=== PATIENT | female | born 1980 | race Asian ===

== ENCOUNTER 2018-10-20 13:37 | Outpatient (RCR) | payer OTHER, SELFPAY ==
[2017-08-05 10:35] VITALS: BMI 21.2
== END 2018-10-20 14:37 | disposition home or self-care (01) ==
LOC: LAB 13:37
PROVIDERS: Referring Provider Internal Medicine; Visit Provider Internal Medicine
DX: E03.9 Hypothyroidism, unspecified (principal)
CPT/HCPCS: 36415; 84443

== ENCOUNTER → 2018-11-01 08:56 | Outpatient (CLI) | payer OTHER, SELFPAY ==
[2017-08-05 10:35] VITALS: BMI 21.2
--- NOTE | 2018-11-01 08:58 | BI_ITS ---
MAMMOGRAPHY - BILATERAL DIAGNOSTIC REASON FOR EXAM: Female, 38 years old. Left shoulder pain and left breast pain for one week. PERTINENT HISTORY: Non-contributory. TECHNIQUE: Digital bilateral breast urmila (3D mammographic acquisition) in the CC and MLO projections. 2-D mediolateral oblique (MLO) and craniocaudad (CC) views of both breasts were obtained. CAD: Full Field Digital Mammography with Computer Added Detection was performed. COMPARISON: None. Baseline examination. FINDINGS: Breast Composition: The breasts are extremely dense, which lowers the sensitivity of mammography. There are no dominant masses or suspicious calcifications. No other significant abnormalities are identified. There has been no significant change since the prior study. BI/DIAG MAMM W/CAD, BILAT IMPRESSION: Negative diagnostic mammogram. Yearly followup mammogram recommended. (A) ASSESSMENT CATEGORY: BIRADS Category 1: Negative. A letter regarding these results will be sent to the patient by the facility within 30 days. Approximately 10% of breast cancers are not detected by mammography. A normal mammogram should not delay biopsy of a clinically suspicious abnormality. Electronically Signed: Eleazar Medina, at 10:24 EDT , Service support ,
== END ==
PROVIDERS: Referring Provider Internal Medicine; Visit Provider Internal Medicine
DX: N64.4 Mastodynia (principal)
CPT/HCPCS: 77062; 77066; G0279

== ENCOUNTER 2019-02-03 08:47 | Day surgery (SDC) | payer OTHER, SELFPAY ==
[2019-01-14 11:58] VITALS: BMI 21.2
--- NOTE | 2019-01-27 00:51 | PCM.HPOB.BLA ---
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 Is patient in pain?: No Allergies No Known Allergies Allergy (Verified 01/14/19 11:57) Medications Levothyroxine Sodium 1 tab PO DAILY 02/16/17 [History Confirmed 01/14/19] levonorgestrel 0.15 mg-ethinyl estradiol 0.03 mg tablet 1 tab PO QDAY #28 tab 12/30/18 [Rx Confirmed 01/14/19] Is last menstrual period known: No Post menopausal: No Patient : No : No [facility] Medical History Abnormal Pap smear of cervix (Acute) Thyroid disorder (Acute) Social History (Updated 01/17/19 @ 00:04 by Argenis Gannon MD) Smoking Status: Never smoker alcohol intake: never substance use type: does not use caffeine: No what type of physical activity do you participate in: none seatbelt use: always do you feel safe at home: Yes additional social history: Demetrio- Both are self employed HPI pelvic pains, declined sooner with [employer]: Details: TOMY BAZAN is a 38 year old who presents for left lower pelvic pain that has been present for two weeks. she co a history of ovarian cysts in the past. pain is better today. she denies any significant bleeding. Pregancy History 2 Elective abortions Hx Para 2 Spontaneous abortions Hx # Term Pregnancies Ectopic pregnancies Hx # Pregnancies Multiple births # of living children Past Pregnancies Del. Date Name GA/Weeks Outcome Route Bth Weight Gen Labor Lgth Anesthesia Del Locatn Provider FOB Unknown 2008 Aarav Unknown 2016 Niara ROS Const Constitutional: Denies fatigue, fever(s), headache(s), increased appetite, poor appetite, weight gain or weight loss Cardio Card: Denies chest pain Resp Resp: Denies cough or dyspnea : Reports as per HPI; denies difficulty urinating, painful urination, nipple discharge, urinary frequency, urinary incontinence, urinary hesitancy, urinary urgency, vaginal discharge, vaginal dryness, vaginal odor or vaginal itching Skin Skin/Breast: Denies change in hair, breast lump, breast pain, breast skin changes or nipple discharge Exam Const General: cooperative, healthy appearing, comfortable, no acute distress, well developed Nutritional Appearance: average body habitus Orientation: alert [facility] Head: normal to inspection, normocephalic Neck Neck: normal visual inspection, trachea midline Thyroid: thyroid normal Resp Effort & Inspection: normal respiratory effort GI Inspection: normal to inspection, non-distended Palpation: soft, no hepatosplenomegaly General: bladder normal to palpation External Female Exam: normal external appearance, normal appearance of the urethra Urethra: normal appearance of the urethra, normal palpation, no discharge Speculum Exam - Vagina: normal appearance of the vagina, normal vaginal discharge Speculum Exam - Cervix: normal appearance of the cervix, nontender Bimanual Exam- Vagina & Uterus: normal bimanual exam, uterine size normal, bladder normal to palpation, uterine shape normal, No cervical tenderness, uterine mobility normal, uterine consistency normal, normal cervical palpation, uterus non-tender Bimanual Exam- Adnexa, other: normal adnexae, adnexae mobile, no adnexal masses, pelvic support normal Pelvic Support: normal Skin General: no rashes or lesions noted Assessment & Plan Problems 1. Sterilization consult Z30.09 plan laparoscopic bilateral salpingectomy 2. Pelvic pain R10.2 Plan plan sterilization, us ordered Orders Orders: Pelvic (Non ) 01/14/19 R10.2 Transvaginal Non- 01/14/19 R10.2 Coding Level of Care Code Off vis,est,level 4 Diagnoses Sterilization consult Z30.09 Pelvic pain R10.2
[2019-02-03 09:11] VITALS: BP 134/86; PULSE 90; RESP 16; TEMP 36.9; O2SAT 99; BMI 19.4
[2019-02-03 09:13] LABS: Hematocrit 43.2 % (37-47); Hemoglobin 14.1 g/dL (12.0-15.0); Mean Corp Hgb Conc 32.6 g/dL (32-36); Mean Corpuscular Hgb 29.4 pg (27.0-32.0); Mean Corpuscular Volume 90.2 fL (81-99); Platelet Count 250 K/mm3 (150-450); Red Blood Count 4.79 M/mm3 (4.2-5.4)
[2019-02-03 09:16] LABS: Internal QC Validated? YES +Cl - CLEAR BKGD; Pregnancy, Urine Negative Negative
[2019-02-03] MEDS: Lactated Ringers 1,000 ML 100 ML IV ×2 (09:24→11:47)
[2019-02-03 09:38] LABS: Thyroid Stim Hormone (TSH) 4.71 uIU/mL (0.358-3.74)
--- NOTE | 2019-02-03 10:15 | FALS_PTH ---
PATIENT: ANATOLY BAZAN LOC: [facility] [place] U#:[id number] AGE/SX: 38/F ROOM: RE02/03/[address]: Dr. Argenis Gannon MD : 1980 BED: DIS: 02/03/2019 SPEC #: [id number] RECD: 02/03/19 14:46 STATUS: AMANDA RESadiq #: [id number] CHRISTY: 02/03/19 10:[address]: Argenis Gannon DEPT: SURGICAL PATHOLOGY RECD BY: Rey Bianchi ENTERED: 02/04/19 08:31 SP TYPE: FALL TUBES OTHR DR: No Primary Care Phys Tissues: Fallopian tube Procedures: Surgery Specimen Level II HEADER OPERATION: Laparoscopic salpingectomy PRE-OP DIAGNOSIS: Sterilization request TISSUE SUBMITTED: Bilateral fallopian tubes MICROSCOPIC DIAGNOSIS Bilateral fallopian tubes, salpingectomy: Bilateral fallopian tubes including fimbrial ends, no pathologic diagnosis. RACHEL:batool 02/07/19 MICROSCOPIC DESCRIPTION Slides are reviewed. GROSS DESCRIPTION Received in fixative is one container labeled with the patient's name and designated bilateral fallopian tubes. The specimen consists of bilateral fallopian tubes including fimbrial ends each measuring 6.5 cm in length and 0.5 cm in diameter. The fallopian tubes are not identified as right or left. Sections reveal unremarkable cut surfaces. Cattle Broker sections are submitted in two cassettes with each cassette containing one fallopian tube. / SJ:batool 02/04/19 TC:4 [facility]: [id number] x2
[2019-02-03] MEDS: Bupivacaine 0.25% 30 ML Vial (11:00)
--- NOTE | 2019-02-03 11:14 | PCM.OPRPT ---
Problem List (1) Sterilization consult Status: Acute Comment: plan laparoscopic bilateral salpingectomy Report of Operation Date of Procedure: 02/03/19 Pre-Operative Diagnosis: sterilization Post-Operative Diagnosis: same Surgery/Procedure Performed:: laparoscopic bilateral salpingectomy Description of Surgical Findings:: normal tubes ovaries double cut off saw operator: Omari Simpson Type of Anesthesia:: General Special Medications: none Specimen's removed: tubes Drains: none Estimated Blood Loss (mL): 10 Fluids Replaced: crystalloid Description of Procedure: Patient was taken in the operating room and was placed under general anesthesia was prepped and draped in normal sterile fashion in the dorsal lithotomy position. Bladder was drained of clear urine and SCDs were on preoperatively. Uterus was sounded and a uterine manipulator was placed after dilating. Attention was then paid to the abdominal portion of the procedure and the umbilicus was elevated with towel clamps and injected with Marcaine and after a 5 mm incision was made and the Veress needle was entered into the abdomen confirmed to be intra-abdominal with a low opening pressure of less than 5 mmHg. Abdomen was insufflated with CO2 gas and a 5 mm optical trocar was placed under direct visualization. A right and left lower quadrant 5 mm ports were placed under direct visualization. Uterus was well visualized and bilateral fallopian tubes identified and bilateral tubes were elevated and transecting across the mesosalpinx and the attachment to the uterine corpus bilaterally the tubes were removed without complication. Excellent hemostasis was noted. Fallopian tubes were removed through the lower port sites without complication. Liver and upper abdomen were visualized notably within normal limits and no other gross abnormalities were seen in the abdomen. All instruments removed from the abdomen after gas was desufflated. Port sites were closed with 3-0 Monocryl Steri's and op sites were applied. All instruments removed from the vagina and patient was awoken and taken recovery in stable condition. Grafts/Implants Used: none - Complications none - Admit VTE Documentation VTE Present on Admission: No VTE Mechan Device Prophylaxis: SCD's Multi Select Codes - Urinary/Genital Urinary/Genital CPT Codes: 25985 Oophorectomy - bilateral salpingectomy laparoscopy
--- NOTE | 2019-02-03 11:16 | PCM.DC.TUB ---
Discharge Diet: No Restrictions - Increase fluid intake for the next 48 hours. Discharge Activity: Return to Normal Activity, May Drive - when you are no longer taking narcotic pain medications., May Shower, May Take a Tub Bath - in 7 days Additional Activity Instructions:: Ambulate often the next week after surgery. Nothing in the vagina for 5 days. Call your doctor if your incision/area has: Continuous Slow Oozing, Sudden Increased Bleeding, Increased Pain/ Swelling, Increased Redness, Foul Smelling Discharge Call your doctor if you observe: Fever of 101 or Higher Allergies/Adverse Reactions: Allergies No Known Allergies Allergy (Verified 02/03/19 09:11) Medications to take at Discharge Levothyroxine Sodium 1 tab PO DAILY 02/16/17 levonorgestrel 0.15 mg-ethinyl estradiol 0.03 mg tablet 1 tab PO QDAY #28 tab 12/30/18 Naproxen [Naprosyn] 250 - 500 mg PO Q8H PRN PRN #30 tab 02/03/19 Oxycodone HCl/Acetaminophen [Percocet 5-325] 1 - 2 tablet PO Q4H PRN PRN 7 Days #15 tablet 02/03/19 The following prescriptions were given: Naproxen [Naprosyn] 250 - 500 mg PO Q8H PRN PRN #30 tab PRN Reason: MILD PAIN Transmission Status: Pending to [facility] Oxycodone HCl/Acetaminophen [Percocet 5-325] 1 - 2 tablet PO Q4H PRN PRN 7 Days #15 tablet PRN Reason: Pain Transmission Status: Sent to [facility] Primary Care Physician: Care Physician,No Primary [Primary Care Provider] - Test Results: Test results from this visit will be discussed in further detail at your follow-up appointment, if applicable. Please Follow Up With: Argenis Gannon MD - [phone]
[2019-02-03 11:35] VITALS: BP 127/85; BP 134/86; PULSE 75; RESP 16; TEMP 36.2; O2SAT 100
[2019-02-03 11:45] VITALS: BP 118/84; BP 134/86; PULSE 73; RESP 16; O2SAT 100
[2019-02-03 11:53] VITALS: BP 121/81; BP 134/86; PULSE 70; RESP 16; TEMP 36.6; O2SAT 100
[2019-02-03] MEDS: HYDROcodone Bitartrate/Apap 5/325 Tablet PO (12:17)
[2019-02-03 12:55] VITALS: BP 128/86; BP 134/86; PULSE 74; RESP 16; TEMP 37.1; O2SAT 100
== END 2019-02-03 13:32 | disposition home or self-care (01) ==
LOC: SDC 08:48 → AC 08:49
PROVIDERS: Anesthesiology; Referring Provider Obstetrics & Gynecology; Visit Provider Obstetrics & Gynecology
PROC: (CPT 58661; principal; 2019-02-03 10:00)
DX: Z30.2 Encounter for sterilization (principal); R10.2 Pelvic and perineal pain; E06.9 Thyroiditis, unspecified; Z79.899 Other long term (current) drug therapy
CPT/HCPCS: 58661; 81025; 84443; 85027; 86850; 86900; 86901; 88302; J7120; J2405

== ENCOUNTER → 2020-03-22 | Outpatient (CLI) | payer SELFPAY ==
[2020-03-22 09:18] VITALS: BMI 20.9
[2020-03-28 14:07] LABS: HPV APTIMA, High Risk Negative (Negative)
== END | disposition home or self-care (01) ==
LOC: LABSPEC 16:20
PROVIDERS: Visit Provider Obstetrics & Gynecology
DX: Z12.4 Encounter for screening for malignant neoplasm of cervix (principal); N94.9 Unspecified condition associated with female genital organs and menstrual cycle
CPT/HCPCS: 87070; 87205; 87624; 88175; G0145

== ENCOUNTER → 2022-06-10 | Outpatient (CLI) | payer SELFPAY ==
[2022-06-10 12:35] LABS: Estradiol 305.4 pg/mL; Follicle Stimulating Hormone 33.4 mIU/mL; Prolactin 14.3 ng/mL
== END | disposition home or self-care (01) ==
PROVIDERS: Referring Provider Obstetrics & Gynecology; Visit Provider Obstetrics & Gynecology
DX: N89.8 Other specified noninflammatory disorders of vagina (principal)
CPT/HCPCS: 36415; 82627; 82670; 83001; 83498; 84146; 84402; 87070; 87205; 82626

== ENCOUNTER → 2023-06-18 | Outpatient (CLI) | payer OTHER, SELFPAY ==
--- OUTSIDE RECORDS SUMMARY | 2023-06-18 14:44 | XMS RPT_ITS | CCD ---
Author Name Unknown Address [address] [place] [address] Organization [facility] Care Team Providers Care Guard Sergeant Name Role Phone Argenis Gannon MD Unavailable [phone] Pcp, No Unavailable Unavailable Jaimie Church MD Unavailable Traci Del Valle MD Primary Care Provider [phone] Pcp, No Unavailable Unavailable Jaimie Church MD Unavailable Traci Del Valle MD Primary Care Provider GANTA, TRACI Primary Care Unavailable GANTA, TRACI Referring Unavailable GANTA, TRACI Primary Care Unavailable GANTA, TRACI Referring Unavailable GANTA, TRACI Referring Unavailable GANTA, TRACI Primary Care Unavailable GANTA, TRACI Primary Care Unavailable GANTA, TRACI Attending Unavailable GANTA, TRACI Referring Unavailable GANTA, TRACI Primary Care Unavailable GANTA, TRACI Referring Unavailable GANTA, TRACI Primary Care Unavailable GANTA, TRACI Primary Care Unavailable GANTA, TRACI Referring Unavailable Pcp CPR AMBULANCE DRIVER, No Unavailable Unavailable Jaimie Church MD Unavailable Traci Del Valle MD Primary Care Provider [phone] Medications Completed/Discontinued Medications Medication Drug Class(es) Dates Sig (Normalized) Sig (Original) COMPOUNDED PRESCRIPTION (12 sources) Start: 05-15-2016 COMPOUNDED PRESCRIPTION Progesterone vaginal capsules. Insert 2 vaginally twice a day 120 capsule 1 05/15/2016 Active Problems Active Problems Problem Classification Problem Date Documented Da te Episodic/Chronic Spondylosis; intervertebral disc disorders; other back problems (1 source) Chronic low back pain; Translations: [Chronic bilateral low back pain without sciatica] Episodic Thyroid disorders (2 sources) Acquired hypothyroidism; Translations: [Hypothyroidism, unspecified] Onset: 10-23-2022 Chronic Unclassified (2 sources) 37 weeks gestation of ; Translations: [37 weeks gestation of ] Onset: 12-30-2016 02-06-2017 Unclassified (2 sources) care ; Translations: [Encounter for routine follow-up] Onset: 04-02-2017 04-03-2017 Past or Other Problems Problem Classification Problem Date Documented Da te Episodic/Chronic Normal and/or delivery (8 sources) Gestation period, 36 weeks; Translations: [Gestation period, 31 weeks] Onset: 12-30-2016 01-30-2017 Episodic Other complications of ; puerperium affecting management of mother (12 sources) Continuing after intrauterine of twin fetus; Translations: [, twin with loss of one fetus] Onset: 07-25-2016 09-10-2016 Episodic Other complications of (19 sources) High risk ; Translations: [Supervision of resulting from assisted reproductive technology, second trimester] Onset: 07-17-2016 12-30-2016 Episodic Other complications of (12 sources) Viral hepatitis complicating , childbirth and the puerperium; Translations: [Viral hepatitis complicating , unspecified trimester] Onset: 07-25-2016 08-08-2016 Episodic Other complications of (1 source) Supervision of resulting from assisted reproductive technology, second trimester; Translations: [ resulting from assisted reproductive technology] Onset: 07-17-2016 10-10-2016 Episodic Other gastrointestinal disorders (2 sources) H/O: liver disease; Translations: [Personal history of other diseases of the digestive system] Onset: 12-30-2016 12-30-2016 Episodic Other screening for suspected conditions (not mental disorders or infectious disease) (19 sources) Patient encounter status; Translations: [Encounter for screening mammogram for malignant neoplasm of breast] Onset: 07-17-2016 Episodic Residual codes; unclassified (12 sources) Genetic disorder carrier; Translations: [Genetic carrier of other disease] Onset: 07-17-2016 07-17-2016 Episodic Residual codes; unclassified (12 sources) Vegetarian; Translations: [Other specified health status] Onset: 07-17-2016 07-17-2016 Episodic Unclassified (4 sources) Family history of other congenital malformations, deformations and chromosomal abnormalities; Translations: [Family history of other congenital malformations, deformations and chromosomal abnormalities] Onset: 12-30-2016 12-30-2016 Episodic Results Test Name Value Interpretation Reference Range Facil ity Vital Signs Date Time Vital Sign Value Performing Clinician Stefan north 10-29-2021 14:33-0400 Body height 162.6 cm Traci Del Valle MD Work Phone: [facility] 10-29-2021 14:33-0400 Body temperature 97.39 [degF] Traci Del Valle MD Work Phone: [facility] 10-29-2021 14:33-0400 Body weight 53.07 kg Traci Del Valle MD Work Phone: [facility] 10-29-2021 14:33-0400 Diastolic blood pressure 72 mm[Hg] Traci Del Valle MD Work Phone: [facility] 10-29-2021 14:33-0400 Heart rate 82 /min Traci Del Valle MD Work Phone: [facility] 10-29-2021 14:33-0400 Respiratory rate 12 /min Traci Del Valle MD Work Phone: [facility] 10-29-2021 14:33-0400 SaO2% (BldA) [Mass fraction] 100 % Traci Del Valle MD Work Phone: [facility] 10-29-2021 14:33-0400 Systolic blood pressure 128 mm[Hg] Traci Del Valle MD Work Phone: [facility] 04-02-2017 15:23-0500 BMI (Body Mass Index) 22.02 kg/m2 Argenis Gannon MD [facility] 04-02-2017 15:23-0500 BP Diastolic 74 mm[Hg] Argenis Gannon MD [facility] 04-02-2017 15:23-0500 BP Systolic 119 mm[Hg] Argenis Gannon MD [facility] 04-02-2017 15:23-0500 Weight 54.61 kg Argenis Gannon MD [facility] 02-13-2017 09:59-0400 Body Temperature 98.4 [degF] Argenis Gannon MD [facility] 02-13-2017 09:59-0400 Pulse (Heart Rate) 98 /min Argenis Gannon MD [facility] 02-13-2017 09:59-0400 Respiratory Rate 16 /min Argenis Gannon MD [facility] 12-30-2016 15:08-0400 Height 157.48 cm Argenis Gannon MD [facility] Encounters Encounter Date Encounter Type Care Provider Facility Start: 10-30-2022 End: 10-30-2022 ambulatory TRACI DEL VALLE Facility:[facility] Start: 10-23-2022 End: 10-24-2022 ambulatory TRACI DEL VALLE Facility:[facility] Start: 07-21-2022 End: 07-21-2022 ambulatory TRACI DEL VALLE Facility:[facility] Start: 07-21-2022 End: 07-21-2022 Subsequent hospital visit by physician Screen Mammo [facility] Mammogram Start: 01-15-2022 Telephone encounter Traci ahn MD Work Phone: [facility] Procedures Date Procedure Procedure Detail Performing Clinician Start: 07-21-2022 Screening mammograph y bi 2-view breast inc cad Gwendolyn Wood MD Work Phone: Start: 01-14-2022 Us breast uni real t génesis with image limited Traci Del Valle MD Work Phone: Start: 01-14-2022 [facility] LT Brendan Del Valle MD Work Phone: Start: 11-06-2021 End: 11-06-2021 Mammography Traci Del Valle MD Work Phone: Start: 11-05-2020 Mammography Traci ahn MD Work Phone: Start: 10-27-2018 Adult depression scr eening assessment Traci Del Valle MD Work Phone: Start: 02-13-2017 End: 02-14-2017 Routine OB Visit (Global) Argenis muro MD Work Phone: Start: 02-06-2017 End: 02-06-2017 Routine OB Visit (Global) Argenis muro MD Work Phone: Start: 01-30-2017 End: 01-30-2017 Routine OB Visit (Global) Argenis muro MD Work Phone: Start: 01-30-2017 End: 02-16-2017 Streptococcus agalactiae DNA [Presence] in Unspecified specimen by DOROTHY with probe detection Argenis Gannon MD Work Phone: Start: 01-14-2017 End: 01-14-2017 Routine OB Visit (Global) Noreen laird GOLD BUYER Work Phone: Plan of Treatment Date Care Activity Detail Author Start: 12-08-2026 Urine microalbumin profile [facility] Start: 10-31-2023 Annual PCP Team Chronic Disease Visit Annual PCP Team Chronic Disease Visit [facility] Start: 07-21-2023 Mammography Mammogram Screening [facility] Start: 01-23-2023 Influenza vaccination [facility] Start: 11-06-2022 Mammography MAMMOGRAM [facility] Start: 10-29-2022 ANNUAL PCP TEAM CHRONIC DISEASE VISIT ANNUAL PCP TEAM CHRONIC DISEASE VISIT [facility] Start: 01-23-2022 Influenza vaccination [facility] Start: 11-05-2021 Mammography MAMMOGRAM [facility] Start: 07-25-2020 HPV TESTING HPV TESTING [facility] Start: 07-25-2020 PAP TESTING PAP TESTING [facility] Start: 10-28-2019 Adult depression screening assessment DEPRESSION SCREENING [facility] Start: 01-30-2017 End: 02-16-2017 Streptococcus agalactiae DNA [Presence] in Unspecified specimen by DOROTHY with probe detection *GBSD - Group B Strep, DNA by PCR [facility] Start: 1985 COVID-19 VACCINE (#1) COVID-19 VACCINE (#1) [facility] Start: 04-04-1981 COVID-19 VACCINE (#1) COVID-19 VACCINE (#1) [facility] Start: 1980 HEPATITIS B (1 of 3 - 3-dose series) HEPATITIS B (1 of 3 - 3-dose series) [facility] Start: 1980 Hepatitis B Vaccine (1 of 3 - 3-dose series) Hepatitis B Vaccine (1 of 3 - 3-dose series) [facility] End: 12-06-2022 Diagnostic mammography computer-aided detcj uni [facility] Radiology Routine Abnormal mammogram 1 Occurrences starting 11/06/2021 until 12/06/2022 [facility] Work Phone: Immunizations Immunization Date Immunization Notes Care Provider Fa rasheed 02-17-2017 influenza, seasonal, injectable, preservative free Traci Del Valle MD Work Phone: [facility] Work Phone: 02-17-2017 influenza virus vaccine, unspecified formulation Screen Wstr [facility] 12-08-2016 tetanus toxoid, redu betsy diphtheria toxoid, and acellular pertussis vaccine, adsorbed Traci Del Valle MD Work Phone: [facility] Work Phone: 06-21-2016 influenza, high dose seasonal, preservative-free Traci Del Valle MD Work Phone: [facility] Work Phone: 06-21-2016 influenza, injectabl e, quadrivalent, contains preservative Traci Del Valle MD Work Phone: [facility] Social History Date Type Detail Facility Start: 07-26-2015 Tobacco smoking stat us WAIS Never smoked tobacco [facility] Work Phone: Start: 07-26-2015 Tobacco use and exposure Smokeless tobacco non-user [facility] Work Phone: Start: 10-29-2021 Alcohol intake Current non-dr dynamicist of alcohol (finding) [facility] Start: 1980 Sex Assigned At Not on file [facility] Start: 10-19-2021 End: 12-04-2021 Exposure to SARS-CoV-2 (event) Not sure [facility] Work Phone: Start: 10-29-2021 End: 06-10-2022 History of Social function [facility] Start: 10-29-2021 End: 06-10-2022 Tobacco use panel [facility] Adult Depression Screening Assessment 2 [facility] Clinical Notes 07-17-2016 to 10-30-2022 Socorro Santos Mammo Tech - 07/21/2022 9:10 AM ESTTelephone Encounter - Rochelle Cardona Ga - 01/15/2022 12:03 PM EDTTelephone Encounter - Rochelle Cardona Ga - 01/15/2022 12:02 PM EDT Note Date & Type Note Facility 10-30-2022 Note HNO ID: [id number] Author: Traci Del Valle MD Service: ? Author Type: Physician Type: Progress Notes Filed: 10/30/2022 2:02 PM Note Text: Reason for Visit Patient presents with: Physical Anatoly Ross is a 42 year old female who presents here today for CPE. Health Maintenance HEPATITIS B(1 of 3 - 3-dose series) COVID-19 VACCINE(1) PAP TESTING HPV TESTING DEPRESSION ASSESSMENT HPI This was a challenging visit for her as she lost her brother to suicide. The patient is inconsolable a lot of the days and spontaneously stops crying. Unable to focus on homework, on her kids, her . She was inconsolable today in the office. This is coming up in 1 year and she is willing to start medications Hypothyroidism. She is doing well on her current dose of Synthroid. Denies fatigue, cold intolerance and swelling in feet. TSH recently checked and normal. Depression Screening 04/15/2017 10/27/2018 10/30/2022 PHQ-2 Score 0 2 0 Depression screening tool completed and reviewed. Based on score and interview, patient is at risk for depression. Screening tool discussed with patient, and I recommended medication at this time No problem-specific Assessment AND Plan notes found for this encounter. 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 Pertinent Lab/Diagnostic Studies are reviewed and discussed today Current Outpatient Medications: levothyroxine (LEVOXYL) 25 mcg tablet Mqdzhsay-Lt-Kbu-Fe-FA tab COMPOUNDED PRESCRIPTION Review of Systems CONSTITUTIONAL: No fevers, chills, nightsweats, unintended weight loss HEENT: Denies frequent or severe heaches, nasal congestion/sinus symptoms, problematic allergy problems. EYES: No diplopia or blurry vision. CARDIOVASCULAR: No chest pain, dyspnea, palpitations, orthopnea, PND, ankle edema. PULM: No dyspnea, unexplained cough. GI: No dysphagia/odynophagia, problematic reflux, constipation, diarrhea, changes in stool habits, hematochezia, melena. : No new urinary complaints, including dysuria, gross hematuria or pyuria. NEURO: No new balance problems, peripheral weakness/paresthesias or numbness of concern. MUSC-SKEL: No new joint pain, swelling, or erythema. PSY: No concerns regarding depression, anxiety or panic. INTEGUMENTARY: No new skin changes (rash, new or changing mole, new growth) Physical Exam BP 118/70 Pulse 76 Resp 16 Ht 162.6 cm (5' 4.02 ) Wt 52.6 kg (116 lb) LMP 11/24/2017 SpO2 98% BMI 19.90 kg/m? General appearance: Well appearing, alert, in no acute distress, well-hydrated, well nourished. Skin: Skin color, texture, turgor normal, no suspicious rashes or lesions Head: Normocephalic, no masses, lesions, tenderness or abnormalities Eyes: Anicteric sclera. Pupils are equally round and reactive to light. Extraocular movements are intact. Ears: External ears normal, canals clear Nose/Sinuses: Nares normal, septum midline, mucosa normal, no drainage or sinus tenderness Oropharynx: Lips, mucosa, and tongue normal, teeth and gums normal, oropharynx normal Neck: Supple, no adenopathy; thyroid symmetric, normal size, no bruits Back: Normal exam Lungs: Lungs clear to auscultation. No wheezing, rhonchi, rales Heart: RRR without murmur, gallop, or rubs. No ectopy Abdomen: Normal abdominal exam, Abdomen soft, non-tender. Bowel sounds normal. No masses, organomegaly Extremities: No deformities, edema, skin discoloration, clubbing or cyanosis. Good capillary refill. Musculoskeletal: No joint swelling, deformity, or tenderness Peripheral pulses: Normal Neuro: Gait normal. Reflexes normal and symmetric. Sensation grossly intact. ASSESSMENT/PLAN: 1. Annual physical exam - ICD9: V70.0, ICD10: Z00.00 (primary diagnosis) - Counseled on healthy diet and regular exercise - Calcium intake with supplements or by diet of 1000 mg/day for under 50, 1765-4814 mg/day for 50+ 2. Grief - ICD9: 309.0, ICD10: F43.21 Trial of SSRI and for insomnia Valium 3. Moderate episode of recurrent major depressive disorder (HCC) - ICD9: 296.32, ICD10: F33.1 - DEPRESSION SCREENING/ASSESSMENT - ESCITALOPRAM 5 MG TABLET 4. Acquired hypothyroidism - ICD9: 244.9, ICD10: E03.9 - LEVOTHYROXINE 25 MCG TABLET Traci Del Valle MD [facility] 10-14-2022 Note Patient Outreach (IN TMMN) ANATOLY ROSS ([id number]) 1980 F Date Time Provider Department 10/14/22 TRACI DEL VALLE During your visit today, we recorded the following information about you: Allergies As of Date: 10/14/2022 (No Known Allergies) Date Reviewed: 10/29/2021 Reviewed by: Elaine Gonzalez LPN - Fully Assessed Visit Diagnosis:Acquired hypothyroidism [E03.9] Order(s):TSH BLD [SQTSH] Order #: [id number] FUTURE Prescriptions as of 10/17/2022 - levothyroxine (LEVOXYL) 25 mcg tablet Take on empty stomach 6 days week. - Vnwvinye-Ve-Ojk-Fe-FA ( VITAMIN) tab Take 1 tablet by mouth. - COMPOUNDED PRESCRIPTION Progesterone vaginal capsules. 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 Author Type: Surgical Technologist Type: Progress Notes Filed: 07/21/2022 9:02 AM Note Text: Radiology Service Progress Note PATIENT NAME: Anatoly Ross DATE OF SERVICE: July 21, 2022 TIME: 8:47 AM PATIENT IDENTITY VERIFICATION COMPLETED USING TWO (2) IDENTIFIERS: Name and Date of confirmed by patient verbally. FALL SCREENING: Has the patient had 2 falls in the last year or 1 fall with injury or currently using an Ambulatory Assistive Device (Walker, Cane, Wheelchair, Crutches, etc.)? No PATIENT GENDER DATA: Female. status: : No status: NO. PATIENT RELEVANT IMPLANT DATA REVIEWED: Not Applicable RADIOLOGY DEPARTMENT: Mammography PERIPHERAL IV DATA: Not applicable SIGNED BY: Brandan Benavides July 21, 2022 8:47 AM [facility] 07-21-2022 History of Presen t illness Narrative Radiology Service Progress Note PATIENT NAME: Anatoly Ross DATE OF SERVICE: July 21, 2022 TIME: 8:47 AM PATIENT IDENTITY VERIFICATION COMPLETED USING TWO (2) IDENTIFIERS: Name and Date of confirmed by patient verbally. FALL SCREENING: Has the patient had 2 falls in the last year or 1 fall with injury or currently using an Ambulatory Assistive Device (Walker, Cane, Wheelchair, Crutches, etc.)? No PATIENT GENDER DATA: Female. status: : No status: NO. PATIENT RELEVANT IMPLANT DATA REVIEWED: Not Applicable RADIOLOGY DEPARTMENT: Mammography PERIPHERAL IV DATA: Not applicable SIGNED BY: Brandan Benavides Mary Carmen July 21, 2022 8:47 AM documented in this encounter [facility] 01-15-2022 Miscellaneous Notes Pt notified of results via [employer]. Rochelle Cardona Ma ----- Message from Traci Del Valle MD sent at 01/15/2022 11:39 AM EDT ----- Test results are normal documented in this encounter [facility] 01-14-2022 Note HNO ID: [id number] Author: Marium Lowe RDMS Service: ? Author Type: Industrial Gas Servicer Supervisor Type: Progress Notes Filed: 01/14/2022 10:30 AM Note Text: Radiology Service Progress Note PATIENT NAME: Anatoly Ross DATE OF SERVICE: January 14, 2022 TIME: 10:30 AM PATIENT IDENTITY VERIFICATION COMPLETED USING TWO (2) IDENTIFIERS: Name and Date of confirmed by patient verbally. FALL SCREENING: Has the patient had 2 falls in the last year or 1 fall with injury or currently using an Ambulatory Assistive Device (Walker, Cane, Wheelchair, Crutches, etc.)? No PATIENT GENDER DATA: Female. status: : No status: NO. PATIENT RELEVANT IMPLANT DATA REVIEWED: Not Applicable RADIOLOGY DEPARTMENT: Ultrasound PERIPHERAL IV DATA: Not applicable SIGNED BY: Marium Lowe RDMS RVT January 14, 2022 10:30 AM [facility] 01-14-2022 Note HNO ID: [id number] Author: RT Kristian(Delaney) Service: ? Author Type: Technologist Type: Progress Notes Filed: 01/14/2022 9:20 AM Note Text: Radiology Service Progress Note PATIENT NAME: Anatoly Ross DATE OF SERVICE: January 14, 2022 TIME: 9:20 AM PATIENT IDENTITY VERIFICATION COMPLETED USING TWO (2) IDENTIFIERS: Name and Date of confirmed by patient verbally. FALL SCREENING: Has the patient had 2 falls in the last year or 1 fall with injury or currently using an Ambulatory Assistive Device (Walker, Cane, Wheelchair, Crutches, etc.)? No PATIENT GENDER DATA: Female. status: : No status: NO. PATIENT RELEVANT IMPLANT DATA REVIEWED: Not Applicable RADIOLOGY DEPARTMENT: Mammography PERIPHERAL IV DATA: Not applicable SIGNED BY: RT Kristian(R) January 14, 2022 9:20 AM [facility] 01-14-2022 Miscellaneous Notes January 14, 2022 PID: [id number] [facility] [address] [place] [address] Dear Ms. Ross, Your recent breast imaging examination performed on 01/14/2022 showed an area that we believe is probably benign (not cancer). A six month follow-up is recommended to ensure your breast health. Please call [phone] to make an appointment for these tests if you have not already done so. You must have an order/prescription from your physician when calling to schedule your appointment. If your order/prescription is not electronic, you must bring the hard copy with you on the day of your exam to avoid delays. Your mammogram demonstrates that you have dense breast tissue, which could hide abnormalities. Dense breast tissue, in and of itself, is a relatively common condition. Therefore, this information is not provided to cause undue concern; rather, it is to raise your awareness and promote discussion with your health care provider regarding the presence of dense breast tissue in addition to other risk factors. Early detection of cancer is very important. We also understand recommendations regarding breast cancer screening are controversial. Please discuss with your primary care provider which strategy is best for you and whether a mammogram is right for you. Your imaging studies and report will be kept on file at [facility] as part of your permanent medical record and are available for your continuing care. Thank you for allowing us to help in meeting your health care needs. Sincerely, Dr. Vasquez Interpreting Radiologist [facility] (# mo Follow-up) January 14, 2022 PID: [id number] Anatoly Ross [address] [place] [address] Dear Ms. Ross, Your recent breast imaging examination performed on 01/14/2022 showed an area that we believe is probably benign (not cancer). A six month follow-up is recommended to ensure your breast health. Please call [phone] to make an appointment for these tests if you have not already done so. You must have an order/prescription from your physician when calling to schedule your appointment. If your order/prescription is not electronic, you must bring the hard copy with you on the day of your exam to avoid delays. Your mammogram demonstrates that you have dense breast tissue, which could hide abnormalities. Dense breast tissue, in and of itself, is a relatively common condition. Therefore, this information is not provided to cause undue concern; rather, it is to raise your awareness and promote discussion with your health care provider regarding the presence of dense breast tissue in addition to other risk factors. Early detection of cancer is very important. We also understand recommendations regarding breast cancer screening are controversial. Please discuss with your primary care provider which strategy is best for you and whether a mammogram is right for you. Your imaging studies and report will be kept on file at [facility] as part of your permanent medical record and are available for your continuing care. Thank you for allowing us to help in meeting your health care needs. Sincerely, Dr. Vasquez Interpreting Radiologist [facility] (# mo Follow-up) documented in this encounter [facility] 01-14-2022 History of Presen t illness Narrative Radiology Service Progress Note PATIENT NAME: Anatoly Ross DATE OF SERVICE: January 14, 2022 TIME: 10:30 AM PATIENT IDENTITY VERIFICATION COMPLETED USING TWO (2) IDENTIFIERS: Name and Date of confirmed by patient verbally. FALL SCREENING: Has the patient had 2 falls in the last year or 1 fall with injury or currently using an Ambulatory Assistive Device (Walker, Cane, Wheelchair, Crutches, etc.)? No PATIENT GENDER DATA: Female. status: : No status: NO. PATIENT RELEVANT IMPLANT DATA REVIEWED: Not Applicable RADIOLOGY DEPARTMENT: Ultrasound PERIPHERAL IV DATA: Not applicable SIGNED BY: Marium Lowe RDMS RVT January 14, 2022 10:30 AM documented in this encounter [facility] 01-14-2022 History of Presen t illness Narrative Radiology Service Progress Note PATIENT NAME: Anatoly Ross DATE OF SERVICE: January 14, 2022 TIME: 9:20 AM PATIENT IDENTITY VERIFICATION COMPLETED USING TWO (2) IDENTIFIERS: Name and Date of confirmed by patient verbally. FALL SCREENING: Has the patient had 2 falls in the last year or 1 fall with injury or currently using an Ambulatory Assistive Device (Walker, Cane, Wheelchair, Crutches, etc.)? No PATIENT GENDER DATA: Female. status: : No status: NO. PATIENT RELEVANT IMPLANT DATA REVIEWED: Not Applicable RADIOLOGY DEPARTMENT: Mammography PERIPHERAL IV DATA: Not applicable SIGNED BY: RT Kristian(R) January 14, 2022 9:20 AM documented in this encounter [facility] 11-06-2021 Miscellaneous Notes Patient's notified and number to schedule was given. Please let patient know that we need additional views of her mammogram There is an area there that they want to make sure there is nothing else that is a problem. Please assist patient with scheduling documented in this encounter [facility] 11-06-2021 Note HNO ID: [id number] Author: Ana Orta Mammo Tech Service: ? Author Type: Surgical Technologist Type: Progress Notes Filed: 11/06/2021 11:44 AM Note Text: Radiology Service Progress Note PATIENT NAME: Anatoly Ross DATE OF SERVICE: November 06, 2021 TIME: 11:44 AM PATIENT IDENTITY VERIFICATION COMPLETED USING TWO (2) IDENTIFIERS: Name and Date of confirmed by patient verbally. FALL SCREENING: Has the patient had 2 falls in the last year or 1 fall with injury or currently using an Ambulatory Assistive Device (Walker, Cane, Wheelchair, Crutches, etc.)? No PATIENT GENDER DATA: Female. status: : No status: NO. PATIENT RELEVANT IMPLANT DATA REVIEWED: Not Applicable RADIOLOGY DEPARTMENT: Mammography PERIPHERAL IV DATA: Not applicable SIGNED BY: Ana Orta [employer] November 06, 2021 11:44 AM [facility] 11-06-2021 Miscellaneous Notes November 06, 2021 PID: [id number] Anatoly Cody [address] [place] [address] Dear Ms. Ross, Your recent breast imaging exam on 11/06/2021 showed a possible finding that requires additional imaging studies for a complete evaluation. Most such findings are probably benign (not cancer). Your mammogram demonstrates that you have dense breast tissue, which could hide abnormalities. Dense breast tissue, in and of itself, is a relatively common condition. Therefore, this information is not provided to cause undue concern; rather, it is to raise your awareness and promote discussion with your health care provider regarding the presence of dense breast tissue in addition to other risk factors. If you have a healthcare provider who ordered/prescribed your screening mammogram: Please call [phone] or EXT: [phone] to schedule an appointment for your additional imaging (if you have not already done so). If you DO NOT have a healthcare provider (ie you did not have an order/prescription for your screening mammogram): Please call to schedule an appointment for your additional imaging (if you have not already done so). You must have an order/prescription from your physician when calling to schedule your appointment. If your order/prescription is not electronic, you must bring the hard copy with you on the day of your exam to avoid delays. Your imaging studies and reports are kept on file at [facility] as part of your permanent medical record, and are available for your continuing care. Thank you for allowing us to help in meeting your health care needs. Sincerely, Dr. Todd Interpreting Radiologist [facility] (Additional imaging) documented in this encounter [facility] 11-06-2021 History of Presen t illness Narrative Radiology Service Progress Note PATIENT NAME: Anatoly Ross DATE OF SERVICE: November 06, 2021 TIME: 11:44 AM PATIENT IDENTITY VERIFICATION COMPLETED USING TWO (2) IDENTIFIERS: Name and Date of confirmed by patient verbally. FALL SCREENING: Has the patient had 2 falls in the last year or 1 fall with injury or currently using an Ambulatory Assistive Device (Walker, Cane, Wheelchair, Crutches, etc.)? No PATIENT GENDER DATA: Female. status: : No status: NO. PATIENT RELEVANT IMPLANT DATA REVIEWED: Not Applicable RADIOLOGY DEPARTMENT: Mammography PERIPHERAL IV DATA: Not applicable SIGNED BY: Brandan Walker November 06, 2021 11:44 AM documented in this encounter [facility] 10-30-2021 Miscellaneous Notes Patient notified and scheduled with PT. ----- Message from Traci Del Valle MD sent at 10/29/2021 5:58 PM EDT ----- Back xr looks normal seems to be more of a postural related back pain that will get better with Physical Therapy documented in this encounter [facility] 10-29-2021 History of Presen t illness Narrative Reason for Visit Patient presents with: Established Patient: phjysical Anatoly Ross is a 41 year old female who presents here today for CPE. Health Maintenance COVID-19 VACCINE(1) DEPRESSION SCREENING PAP TESTING HPV TESTING MAMMOGRAM HPI Diet- vegetarian but eats eggs, plant based diet. Sleep- insomnia at night time occasionally Stress- not much stress Exercise- she is 2 times a week, walking, and doing instagram exercises. Hypothyroidism. She is doing well on her current dose of Synthroid. Denies fatigue, cold intolerance and swelling in feet. TSH recently checked and normal. No problem-specific Assessment & Plan notes found for this encounter. 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 Pertinent Lab/Diagnostic Studies are reviewed and discussed today Current Outpatient Medications: levothyroxine (LEVOXYL) 25 mcg tablet Xzcwbvxk-Dc-Zol-Fe-FA ( VITAMIN) tab COMPOUNDED PRESCRIPTION Review of Systems CONSTITUTIONAL: No fevers, chills, nightsweats, unintended weight loss HEENT: Denies frequent or severe heaches, nasal congestion/sinus symptoms, problematic allergy problems. EYES: No diplopia or blurry vision. CARDIOVASCULAR: No chest pain, dyspnea, palpitations, orthopnea, PND, ankle edema. PULM: No dyspnea, unexplained cough. GI: No dysphagia/odynophagia, problematic reflux, constipation, diarrhea, changes in stool habits, hematochezia, melena. : No new urinary complaints, including dysuria, gross hematuria or pyuria. NEURO: No new balance problems, peripheral weakness/paresthesias or numbness of concern. MUSC-SKEL: No new joint pain, swelling, or erythema. PSY: No concerns regarding depression, anxiety or panic. INTEGUMENTARY: No new skin changes (rash, new or changing mole, new growth) Physical Exam BP 128/72 (BP Site: Left Arm, BP Position: Sitting, BP Cuff Size: Regular Adult) Pulse 82 Temp 36.3 C (97.4 F) Resp 12 Ht 162.6 cm (5' 4 ) Wt 53.1 kg (117 lb) LMP 11/24/2017 SpO2 100% No BMI 20.08 kg/m General appearance: Well appearing, alert, in no acute distress, well-hydrated, well nourished. Skin: Skin color, texture, turgor normal, no suspicious rashes or lesions Head: Normocephalic, no masses, lesions, tenderness or abnormalities Eyes: Anicteric sclera. Pupils are equally round and reactive to light. Extraocular movements are intact. Ears: External ears normal, canals clear Nose/Sinuses: Nares normal, septum midline, mucosa normal, no drainage or sinus tenderness Oropharynx: Lips, mucosa, and tongue normal, teeth and gums normal, oropharynx normal Neck: Supple, no adenopathy; thyroid symmetric, normal size, no bruits Back: Normal exam Lungs: Lungs clear to auscultation. No wheezing, rhonchi, rales Heart: RRR without murmur, gallop, or rubs. No ectopy Abdomen: Normal abdominal exam, Abdomen soft, non-tender. Bowel sounds normal. No masses, organomegaly Extremities: No deformities, edema, skin discoloration, clubbing or cyanosis. Good capillary refill. Musculoskeletal: No joint swelling, deformity, or tenderness Peripheral pulses: Normal Neuro: Gait normal. Reflexes normal and symmetric. Sensation grossly intact. ASSESSMENT/PLAN: 1. Annual physical exam - ICD9: V70.0, ICD10: Z00.00 (primary diagnosis) - Counseled on healthy diet and regular exercise - Calcium intake with supplements or by diet of 1000 mg/day for under 50, 4641-5903 mg/day for 50+ - CONSULT TO PHYSICAL THERAPY 2. Acquired hypothyroidism - ICD9: 244.9, ICD10: E03.9 - Instructed patient on importance of taking on an empty stomach either first thing in the morning or at bedtime. Stable - Continue current medications - LEVOTHYROXINE 25 MCG TABLET 3. Chronic bilateral low back pain without sciatica - ICD9: 724.2, 338.29, ICD10: M54.50, G89.29 - XR LUMBAR GENERAL 3V AP/LAT/L5-S1 4. Encounter for screening mammogram for breast cancer - ICD9: V76.12, ICD10: Z12.31 - Encouraged monthly BSE - Follow up for annual exam in one year. - [facility] SCREENING Traci Del Valle MD documented in this encounter [facility] documented as of this encounter (statuses as of 10/29/2021) [facility]02-[facility]-2017 History of Past illness Narrative* Problem Noted Date Resolved Date Twin in first trimester 07/17/2016 07/25/2016 Overview: 07/17/2016 Patient is 35 years old. Advanced Maternal age discussed. Pt refused handouts on Genetic Amniocentesis and [facility]. [facility] handout on Quad Marker Screen and Early Screening In given and discussed. Level II Ultrasound and Dr. Vicente's services discussed. TKRN documented as of this encounter (statuses as of 10/30/2021) [facility] History of Past illness Narrative* Problem Noted Date Resolved Date Twin in first trimester 07/17/2016 07/25/2016 Overview: 07/17/2016 Patient is 35 years old. Advanced Maternal age discussed. Pt refused handouts on Genetic Amniocentesis and [facility]. [facility] handout on Quad Marker Screen and Early Screening In given and discussed. Level II Ultrasound and Dr. Vicente's services discussed. TKRN documented as of this encounter (statuses as of 11/06/2021) [facility] History of Past illness Narrative* Problem Noted Date Resolved Date Twin in first trimester 07/17/2016 07/25/2016 Overview: 07/17/2016 Patient is 35 years old. Advanced Maternal age discussed. Pt refused handouts on Genetic Amniocentesis and [facility]. [facility] handout on Quad Marker Screen and Early Screening In given and discussed. Level II Ultrasound and Dr. Vicente's services discussed. TKRN documented as of this encounter (statuses as of 11/07/2021) [facility] History of Past illness Narrative* Problem Noted Date Resolved Date Twin in first trimester 07/17/2016 07/25/2016 Overview: 07/17/2016 Patient is 35 years old. Advanced Maternal age discussed. Pt refused handouts on Genetic Amniocentesis and [facility]. [facility] handout on Quad Marker Screen and Early Screening In given and discussed. Level II Ultrasound and Dr. Vicente's services discussed. TKRN documented as of this encounter (statuses as of 11/07/2021) [facility] History of Past illness Narrative* Problem Noted Date Resolved Date Twin in first trimester 07/17/2016 07/25/2016 Overview: 07/17/2016 Patient is 35 years old. Advanced Maternal age discussed. Pt refused handouts on Genetic Amniocentesis and [facility]. [facility] handout on Quad Marker Screen and Early Screening In given and discussed. Level II Ultrasound and Dr. Vicente's services discussed. TKRN documented as of this encounter (statuses as of 11/08/2021) [facility] History of Past illness Narrative* Problem Noted Date Resolved Date Twin in first trimester 07/17/2016 07/25/2016 Overview: 07/17/2016 Patient is 35 years old. Advanced Maternal age discussed. Pt refused handouts on Genetic Amniocentesis and [facility]. [facility] handout on Quad Marker Screen and Early Screening In given and discussed. Level II Ultrasound and Dr. Vicente's services discussed. TKRN documented as of this encounter (statuses as of 12/11/2021) [facility] History of Past illness Narrative* Problem Noted Date Resolved Date Twin in first trimester 07/17/2016 07/25/2016 Overview: 07/17/2016 Patient is 35 years old. Advanced Maternal age discussed. Pt refused handouts on Genetic Amniocentesis and [facility]. [facility] handout on Quad Marker Screen and Early Screening In given and discussed. Level II Ultrasound and Dr. Vicente's services discussed. TKRN documented as of this encounter (statuses as of 01/15/2022) [facility] History of Past illness Narrative* Problem Noted Date Resolved Date Twin in first trimester 07/17/2016 07/25/2016 Overview: 07/17/2016 Patient is 35 years old. Advanced Maternal age discussed. Pt refused handouts on Genetic Amniocentesis and [facility]. [facility] handout on Quad Marker Screen and Early Screening In given and discussed. Level II Ultrasound and Dr. Vicente's services discussed. TKRN documented as of this encounter (statuses as of 01/15/2022) [facility] History of Past illness Narrative* Problem Noted Date Resolved Date Twin in first trimester 07/17/2016 07/25/2016 Overview: 07/17/2016 Patient is 35 years old. Advanced Maternal age discussed. Pt refused handouts on Genetic Amniocentesis and [facility]. [facility] handout on Quad Marker Screen and Early Screening In given and discussed. Level II Ultrasound and Dr. Vicente's services discussed. TKRN documented as of this encounter (statuses as of 01/15/2022) [facility] History of Past illness Narrative* Problem Noted Date Resolved Date Twin in first trimester 07/17/2016 07/25/2016 Overview: 07/17/2016 Patient is 35 years old. Advanced Maternal age discussed. Pt refused handouts on Genetic Amniocentesis and [facility]. [facility] handout on Quad Marker Screen and Early Screening In given and discussed. Level II Ultrasound and Dr. Vicente's services discussed. TKRN documented as of this encounter (statuses as of 01/16/2022) [facility] History of Past illness Narrative* Problem Noted Date Diagnosed Date Resolved Date Twin in first trimester 07/17/2016 07/25/2016 Overview: 07/17/2016 Patient is 35 years old. Advanced Maternal age discussed. Pt refused handouts on Genetic Amniocentesis and [facility]. [facility] handout on Quad Marker Screen and Early Screening In given and discussed. Level II Ultrasound and Dr. Vicente's services discussed. TKRN documented as of this encounter (statuses as of 03/30/2023) [facility] note* Diagnosis Annual physical exam- Primary Routine general medical examination at a health care facility Acquired hypothyroidism Unspecified hypothyroidism Chronic bilateral low back pain without sciatica Encounter for screening mammogram for breast cancer documented in this encounter [facility] note* Diagnosis Abnormal mammogram- Primary Abnormal mammogram, unspecified [facility] Diagnosis Encounter for screening mammogram for breast cancer documented in this encounter [facility] note* Diagnosis Abnormal mammogram Abnormal mammogram, unspecified documented in this encounter [facility] note* Diagnosis Abnormal mammogram Abnormal mammogram, unspecified documented in this encounter [facility] for referral (narrative)* Diagnostic Procedure Only (Routine) - Pending Review Specialty Diagnoses / Procedures Referred By Tatyana parham Referred To Contact [facility] Diagnoses Encounter for screening mammogram for breast cancer Procedures ALBINO SCREENING SCREENING MAMMOGRAPHY BI 2-VIEW BREAST INC CAD Traci Del Valle MD [address] [place] [address] [facility] [address] [place] [address] Referral ID Status Reason Start Date Expiration Date Visits Requested Visits Authorized [id number] Pending Review Auto-Generat ed Referral 10/29/2021 11/28/2022 1 1 * Physical Therapy (Routine) - Pending Review Specialty Diagnoses / Procedures Referred By Tatyana parham Referred To Contact [facility] Diagnoses Annual physical exam Procedures CONSULT TO PHYSICAL THERAPY PHYSICAL THERAPY EVALUATION HIGH COMPLEX 45 MINS Traci Del Valle MD [address] [place] [address] [facility] [place] [address] [place] [id number] Referral ID Status Reason Start Date Expiration Date Visits Requested Visits Authorized [id number] Pending Review Auto-Generat ed Referral 10/29/2021 10/29/2022 1 1 * Diagnostic Procedure Only (Routine) - Pending Review Specialty Diagnoses / Procedures Referred By Tatyana parham Referred To Contact [facility] IMAGING Diagnoses Chronic bilateral low back pain without sciatica Procedures XR LUMBAR GENERAL 3V AP/LAT/L5-S1 RADEX SPINE LUMBOSACRAL 2/3 VIEWS Traci Del Valle MD [address] [place] [address] Xr Imaging Referral ID Status Reason Start Date Expiration Date Visits Requested Visits Authorized [id number] Pending Review Auto-Generat ed Referral 10/29/2021 11/28/2022 1 1 [facility] for referral (narrative)* Diagnostic Procedure Only (Routine) - Pending Review Specialty Diagnoses / Procedures Referred By Tatyana parham Referred To Contact [facility] Diagnoses Abnormal mammogram Procedures US BREAST LTD LT US BREAST UNI REAL TIME WITH IMAGE LIMITED Traci Del Valle MD [address] [place] [address] [facility] [address] [address] Referral ID Status Reason Start Date Expiration Date Visits Requested Visits Authorized [id number] Pending Review Auto-Generat ed Referral 11/06/2021 12/06/2022 1 1 * Diagnostic Procedure Only (Routine) - Pending Review Specialty Diagnoses / Procedures Referred By Tatyana parham Referred To Contact [facility] Diagnoses Abnormal mammogram Procedures ALBINO DIAGNOSTIC LT DIAGNOSTIC MAMMOGRAPHY COMPUTER-AIDED DETCJ UNI Traci Del Valle MD [address] [place] [address] [facility] [address] [place] [address] Referral ID Status Reason Start Date Expiration Date Visits Requested Visits Authorized [id number] Pending Review Auto-Generat ed Referral 11/06/2021 12/06/2022 1 1 [facility] for referral (narrative)* Diagnostic Procedure Only (Routine) - Pending Review Specialty Diagnoses / Procedures Referred By Tatyana parham Referred To Contact [facility] Diagnoses Encounter for screening mammogram for breast cancer Procedures ALBINO SCREENING SCREENING MAMMOGRAPHY BI 2-VIEW BREAST INC CAD Traci Del Valle MD [address] [place] [address] [facility] [address] [place] [address] Referral ID Status Reason Start Date Expiration Date Visits Requested Visits Authorized [id number] Pending Review Auto-Generat ed Referral 10/29/2021 11/28/2022 1 1 [facility] Diagnostic Procedure Only (Routine) - Closed Specialty Diagnoses / Procedures Referred By Contecho t Referred To Contact [facility] Diagnoses Abnormal mammogram Procedures US BREAST LTD LT US BREAST UNI REAL TIME WITH IMAGE LIMITED Traci Del Valle MD [address] [place] [address] [facility] [address] [place] [address] Referral ID Status Reason Start Date Expiration Date V isits Requested Visits Authorized [id number] Closed Auto-Generate d Referral 11/06/2021 12/06/2022 1 1 [facility] Summary Purpose Family History No Family History Records Found Advance Directives No Advanced Directives Records Found Additional Source Comments Source Comments (unrecognize d section and content) In the event this informatio n is protected by the Federal Confidentiality of Alcohol and Drug Abuse Patient Records regulations: The Federal rules restrict any use of the information to criminally investigate or prosecute any alcohol or drug abuse patient.[facility] the event this information is protected by the Federal Confidentiality of Alcohol and Drug Abuse Patient Records regulations: The Federal rules restrict any use of the information to criminally investigate or prosecute any alcohol or drug abuse patient.[facility] the event this information is protected by the Federal Confidentiality of Alcohol and Drug Abuse Patient Records regulations: The Federal rules restrict any use of the information to criminally investigate or prosecute any alcohol or drug abuse patient.[facility] the event this information is protected by the Federal Confidentiality of Alcohol and Drug Abuse Patient Records regulations: The Federal rules restrict any use of the information to criminally investigate or prosecute any alcohol or drug abuse patient.[facility] the event this information is protected by the Federal Confidentiality of Alcohol and Drug Abuse Patient Records regulations: The Federal rules restrict any use of the information to criminally investigate or prosecute any alcohol or drug abuse patient.[facility] the event this information is protected by the Federal Confidentiality of Alcohol and Drug Abuse Patient Records regulations: The Federal rules restrict any use of the information to criminally investigate or prosecute any alcohol or drug abuse patient.[facility] Center[facility] the event this information is protected by the Federal Confidentiality of Alcohol and Drug Abuse Patient Records regulations: The Federal rules restrict any use of the information to criminally investigate or prosecute any alcohol or drug abuse patient.[facility] Center[facility] the event this information is protected by the Federal Confidentiality of Alcohol and Drug Abuse Patient Records regulations: The Federal rules restrict any use of the information to criminally investigate or prosecute any alcohol or drug abuse patient.[facility] CenterIn the event this information is protected by the Federal Confidentiality of Alcohol and Drug Abuse Patient Records regulations: The Federal rules restrict any use of the information to criminally investigate or prosecute any alcohol or drug abuse patient.[facility] CenterIn the event this information is protected by the Federal Confidentiality of Alcohol and Drug Abuse Patient Records regulations: The Federal rules restrict any use of the information to criminally investigate or prosecute any alcohol or drug abuse patient.[facility] Center[facility] the event this information is protected by the Federal Confidentiality of Alcohol and Drug Abuse Patient Records regulations: The Federal rules restrict any use of the information to criminally investigate or prosecute any alcohol or drug abuse patient.[facility] Center[facility] the event this information is protected by the Federal Confidentiality of Alcohol and Drug Abuse Patient Records regulations: The Federal rules restrict any use of the information to criminally investigate or prosecute any alcohol or drug abuse patient.[facility] Reason for Visit (unrecogniz ed section and content) Specialty Diagnoses / Procedures Referred By Tatyana t Referred To Contact INTERNAL MEDICINE Diagnoses Physical Procedures none Self [place] [address] [place] [address] Referral ID Status Reason Start Date Expiration Date V isits Requested Visits Authorized [id number] Closed Financial Clearance Required - Self Pay Patient Cleared - True Self-Pay required payment collected 09/12/2021 12/11/2021 1 1 Reason Comments Results Reason Comments Results Reason Comments Radiology Mammogram Reason Comments Radiology US Specialty Diagnoses / Procedures Referred By Contac t Referred To Contact [facility] Diagnoses Abnormal mammogram Procedures US BREAST LTD LT US BREAST UNI REAL TIME WITH IMAGE LIMITED Traci Del Valle MD [address] [place] [address] [facility] [address] [place] [address] Referral ID Status Reason Start Date Expiration Date V isits Requested Visits Authorized [id number] Closed Auto-Generate d Referral 11/06/2021 12/06/2022 1 1 Specialty Diagnoses / Procedures Referred By Tatyana t Referred To Contact [facility] Diagnoses R92.8 (ICD-10-CM) - Abnormal mammogram Procedures [id number] [place] [address] (CPT ) - DIAGNOSTIC MAMMOGRAPHY COMPUTER-AIDED DETCJ UNI Traci Del Valle MD [address] [place] [address] [facility] [address] [place] [address] Referral ID Status Reason Start Date Expiration Date V isits Requested Visits Authorized [id number] Closed Financial Clearance Required - Self Pay Patient Cleared - True Self-Pay required payment collected 11/07/2021 02/05/2022 1 1 Specialty Diagnoses / Procedures Referred By Tatyana Referred To Contact Radiology / RADIO D[facility] Diagnoses Z12.31 PENDING WITH PCP Procedures MAMMOGRAM SCREENING Self Radio Mammo [facility] [address] [place] [address] Referral ID Status Reason Start Date Expiration Date V isits Requested Visits Authorized [id number] Closed Financial Clearance Required - Self Pay Patient Cleared - True Self-Pay required payment collected 07/21/2022 10/19/2022 1 1 Care Teams (unrecognized sec tion and content) Guard Sergeant Relationship Specialty Start Date End Date Traci Del Valle MD [address] [place], [place] [address] PCP - General Internal Medicine 08/20/16 Pcp, No Internal Medicine 10/19/15 Jaimie Church MD [address] [place] [address] Physician Reproductive Endocrinology 02/04/16 Guard Sergeant Relationship Specialty Start Date End Date Traci Del aVlle MD [address] [place], [place] [id number] PCP - General Internal Medicine 08/20/16 Pcp, No Internal Medicine 10/19/15 Jaimie Church MD [address] [place] [address] Physician Reproductive Endocrinology 02/04/16 Guard Sergeant Relationship Specialty Start Date End Date Traci Del Valle MD [address] [place] [address] PCP - General Internal Medicine 08/20/16 Pcp, No Internal Medicine 10/19/15 Jaimie Church MD [address] [place] [address] Physician Reproductive Endocrinology 02/04/16 Guard Sergeant Relationship Specialty Start Date End Date Traci Del Valle MD [address] [place] [address] PCP - General Internal Medicine 08/20/16 Pcp, No Internal Medicine 10/19/15 Jaimie Church MD [address] [place] [address] Physician Reproductive Endocrinology 02/04/16 Guard Sergeant Relationship Specialty Start Date End Date Traci Del Valle MD [address] [place] [address] PCP - General Internal Medicine 08/20/16 Pcp, No Internal Medicine 10/19/15 Jaimie Church MD [address] [place] [address] Physician Reproductive Endocrinology 02/04/16 Guard Sergeant Relationship Specialty Start Date End Date Traci Del Valle MD [address] [place] [address] PCP - General Internal Medicine 08/20/16 Pcp, No Internal Medicine 10/19/15 Jaimie Church MD [address] [place] [address] Physician Reproductive Endocrinology 02/04/16 Guard Sergeant Relationship Specialty Start Date End Date Traci Del Valle MD [address] [place] [address] PCP - General Internal Medicine 08/20/16 Pcp, Chrissy Internal Medicine 10/19/15 Jaimie Church MD [address] [place] [address] Physician Reproductive Endocrinology 02/04/16 Guard Sergeant Relationship Specialty Start Date End Date Traci Del Valle MD [address] [place] [address] PCP - General Internal Medicine 08/20/16 Pcp, Chrissy Internal Medicine 10/19/15 Jaimie Church MD [address] [place], [place] [id number] Physician Reproductive Endocrinology 02/04/16 Guard Sergeant Relationship Specialty Start Date End Date Traci Del Valle MD [address] [place] [address] PCP - General Internal Medicine 08/20/16 Pcp, No Internal Medicine 10/19/15 Jaimie Church MD [address] [place] [address] Physician Reproductive Endocrinology 02/04/16 Guard Sergeant Relationship Specialty Start Date End Date Traci Del Valle MD [address] [place] [address] PCP - General Internal Medicine 08/20/16 PcpChrissy, CPR AMBULANCE DRIVER Internal Medicine 10/19/15 Jaimie Church MD [address] [place] [address] Physician Reproductive Endocrinology 02/04/16 INFORMATION SOURCE (unrecogn ized section and content) FOR RECORDS PERTAINING TO PATIENTS WHO ARE OR HAVE BEEN ENROLLED IN A CHEMICAL DEPENDENCY/SUBSTANCEABUSE PROGRAM, SOME INFORMATION MAY BE OMITTED. This clinical summary was aggregated from multiple sources. Caution should be exercised in using it in the provision of clinical care. This summary normalizes information from multiple sources, and as a consequence, information in this document may materially change the coding, format and clinical context of patient data. In addition, data may be omitted in some cases. CLINICAL DECISIONS SHOULD BE BASED ON THE PRIMARY CLINICAL RECORDS. [facility]. provides no warranty or guarantee of the accuracy or completeness of information in this document.
[2023-06-24 15:08] LABS: HPV APTIMA, High Risk Negative (Negative)
== END | disposition home or self-care (01) ==
LOC: LABSPEC 14:13
PROVIDERS: PCP Internal Medicine; Referring Provider Obstetrics & Gynecology; Visit Provider Obstetrics & Gynecology
DX: Z12.4 Encounter for screening for malignant neoplasm of cervix (principal)
CPT/HCPCS: 87624; 88175; G0145

== ENCOUNTER → 2023-06-23 | Outpatient (CLI) | payer SELFPAY ==
--- NOTE | 2023-06-23 12:22 | BI_ITS ---
MAMMOGRAPHY - BILATERAL SCREENING REASON FOR EXAM: Female, 42 years old. Routine annual screening examination. PERTINENT HISTORY: Non-contributory. TECHNIQUE: Digital bilateral breast ellen (3D mammographic acquisition) in the CC and MLO projections. 2-D mediolateral oblique (MLO) and craniocaudad (CC) views of both breasts were obtained. CAD: Full Field Digital Mammography with Computer Added Detection was performed. COMPARISON: Comparison is made with prior outside examination dated July 21, 2022. FINDINGS: Breast Composition: The breasts are extremely dense, which lowers the sensitivity of mammography. There are no dominant masses or suspicious calcifications. No other significant abnormalities are identified. There has been no significant change since the prior study. BI/SCRN MAMM (CAD)W/ELLEN BILAT IMPRESSION: Stable bilateral screening mammogram. Yearly follow-up mammogram recommended. (A) ASSESSMENT CATEGORY: BIRADS Category 1: Negative. A letter regarding these results will be sent to the patient by the facility within 30 days. Approximately 10% of breast cancers are not detected by mammography. A normal mammogram should not delay biopsy of a clinically suspicious abnormality. [id number] Electronically Signed: Eleazar Medina MD at 14:53 EST ,
--- OUTSIDE RECORDS SUMMARY | 2023-06-23 12:44 | XMS RPT_ITS | CCD ---
Author Name Unknown Address [address] [place] [address] Organization [facility] Care Team Providers Care Retail Assistant Manager Name Role Phone Argenis Gannon MD Unavailable [phone] Pcp, No Unavailable Unavailable Jaimie Church MD Unavailable Brandee Stone MD Primary Care Provider [phone] Pcp, No Unavailable Unavailable Jaimie Church MD Unavailable Brandee Stone MD Primary Care Provider GANTA, BRANDEE Primary Care Unavailable GANTA, BRANDEE Referring Unavailable GANTA, BRANDEE Primary Care Unavailable GANTA, BRANDEE Referring Unavailable GANTA, BRANDEE Referring Unavailable GANTA, BRANDEE Primary Care Unavailable GANTA, BRANDEE Primary Care Unavailable GANTA, BRANDEE Attending Unavailable GANTA, BRANDEE Referring Unavailable GANTA, BRANDEE Primary Care Unavailable GANTA, BRANDEE Referring Unavailable GANTA, BRANDEE Primary Care Unavailable GANTA, BRANDEE Primary Care Unavailable GANTA, BRANDEE Referring Unavailable Pcp BROOMMAKING SUPERVISOR, No Unavailable Unavailable Jaimie Church MD Unavailable [phone] Brandee Stone MD Primary Care Provider [phone] Medications Completed/Discontinued Medications Medication Drug Class(es) Dates [...] unclassified (12 sources) Genetic disorder carrier; Translations: abnormalities Eyes: Anicteric sclera. Pupils are equally [...] diet of 1000 mg/day for under 50, 8925-4850 mg/day for 50+ - CONSULT TO PHYSICAL [...] for annual exam in one year. - ALBINO SCREENING Brandee Stone MD documented in this encounter [facility] documented as of this encounter (statuses as of 10/29/2021) [facility]2017 History of Past illness Narrative* Problem Noted [...] of this encounter (statuses as of 10/30/2021) [facility] History of Past illness Narrative* Problem Noted [...] of this encounter (statuses as of 11/06/2021) [facility] History of Past illness Narrative* Problem Noted [...] of this encounter (statuses as of 11/07/2021) [facility] History of Past illness Narrative* Problem Noted [...] of this encounter (statuses as of 11/07/2021) [facility] History of Past illness Narrative* Problem Noted [...] of this encounter (statuses as of 11/08/2021) [facility] History of Past illness Narrative* Problem Noted [...] of this encounter (statuses as of 12/11/2021) [facility]2017 History of Past illness Narrative* Problem Noted [...] of this encounter (statuses as of 01/15/2022) [facility] History of Past illness Narrative* Problem Noted [...] of this encounter (statuses as of 01/15/2022) [facility]2017 History of Past illness Narrative* Problem Noted [...] of this encounter (statuses as of 01/15/2022) [facility] History of Past illness Narrative* Problem Noted [...] of this encounter (statuses as of 01/16/2022) [facility] History of Past illness Narrative* Problem Noted [...] of this encounter (statuses as of 03/30/2023) [facility] note* Diagnosis Annual physical exam- Primary Routine general medical examination at a health care facility Acquired hypothyroidism Unspecified hypothyroidism Chronic bilateral low back pain without sciatica Encounter for screening mammogram for breast cancer [facility]* Diagnosis Abnormal mammogram- Primary Abnormal mammogram, unspecified [facility] Diagnosis Encounter for screening mammogram for breast cancer [facility] Diagnosis Abnormal mammogram Abnormal mammogram, unspecified [facility] Diagnosis Abnormal mammogram Abnormal mammogram, unspecified documented in this encounter [facility] for referral (narrative)* Diagnostic Procedure Only (Routine) - Pending Review Specialty Diagnoses / Procedures Referred By Contac t Referred To Contact [facility] Diagnoses Encounter for screening mammogram for breast cancer Procedures ALBINO SCREENING SCREENING MAMMOGRAPHY BI 2-VIEW BREAST INC Brandee Alvarez MD [address] [place] [address] [facility] [address] [place] [address] Referral ID Status Reason Start Date Expiration Date Visits Requested Visits Authorized [id number] Pending Review Auto-Generat ed Referral 10/29/2021 11/28/2022 1 1 * Physical Therapy (Routine) - Pending Review Specialty Diagnoses / Procedures Referred By Contac t Referred To Contact [facility] Diagnoses Annual physical exam Procedures CONSULT TO PHYSICAL THERAPY PHYSICAL THERAPY EVALUATION HIGH COMPLEX [place] [address] [place] [address] [facility] [address] [place] [address] Referral ID Status Reason Start Date Expiration Date Visits Requested Visits Authorized [id number] Pending Review Auto-Generat ed Referral 10/29/2021 10/29/2022 1 1 * Diagnostic Procedure Only (Routine) - Pending Review Specialty Diagnoses / Procedures Referred By Tatyana parham Referred To Contact [facility] IMAGING Diagnoses Chronic bilateral low back pain without sciatica Procedures XR LUMBAR GENERAL 3V AP/LAT/L5-S1 RADEX SPINE LUMBOSACRAL 2/3 VIEWS Brandee Stone MD [address] [place] [address] Xr Imaging Referral ID Status Reason Start Date Expiration Date Visits Requested Visits Authorized [id number] Pending Review Auto-Generat ed Referral 10/29/2021 11/28/2022 1 1 [facility] for referral (narrative)* Diagnostic Procedure Only (Routine) - Pending Review Specialty Diagnoses / Procedures Referred By Tatyana t Referred To Contact [facility] Diagnoses Abnormal mammogram Procedures US BREAST LTD LT US BREAST UNI REAL TIME WITH IMAGE LIMITED Brandee Stone MD [address] [place] [address] [facility] [address] [place] [address] Referral ID Status Reason Start Date Expiration Date Visits Requested Visits Authorized [id number] Pending Review Auto-Generat ed Referral 11/06/2021 12/06/2022 1 1 * Diagnostic Procedure Only (Routine) - Pending Review Specialty Diagnoses / Procedures Referred By Tatyana parham Referred To Contact [facility] Diagnoses Abnormal mammogram Procedures ALBINO DIAGNOSTIC LT DIAGNOSTIC MAMMOGRAPHY COMPUTER-AIDED DETCJ UNI Brandee Stone MD [address] [place] [address] [facility] [address] [place] [address] Referral ID Status Reason Start Date Expiration Date Visits Requested Visits Authorized [id number] Pending Review Auto-Generat ed Referral 11/06/2021 12/06/2022 1 1 [facility] for referral (narrative)* Diagnostic Procedure Only (Routine) - Pending Review Specialty Diagnoses / Procedures Referred By Tatyana parham Referred To Contact [facility] Diagnoses Encounter for screening mammogram for breast cancer Procedures ALBINO SCREENING SCREENING MAMMOGRAPHY BI 2-VIEW BREAST INC CAD Brandee Stone MD [address] [place] [address] [facility] [address] [place] [address] Referral ID Status Reason Start Date Expiration Date Visits Requested Visits Authorized [id number] Pending Review Auto-Generat ed Referral 10/29/2021 11/28/2022 1 1 [facility] for referral (narrative)* Diagnostic Procedure Only (Routine) - Closed Specialty Diagnoses / Procedures Referred By Tatyana parham Referred To Contact [facility] Diagnoses Abnormal mammogram Procedures US BREAST LTD LT US BREAST UNI REAL TIME WITH IMAGE LIMITED Brandee Stone MD [address] [place] [address] [facility] [address] [place] [address] Referral ID Status Reason Start Date Expiration Date V isits Requested Visits Authorized [id number] Closed Auto-Generate d Referral 11/06/2021 12/06/2022 1 1 [facility] Summary Purpose Family History No Family History [...] or prosecute any alcohol or drug abuse patient.[facility] the event this information is protected by the Federal Confidentiality of Alcohol and Drug Abuse Patient Records regulations: The Federal rules restrict any use of the information to criminally investigate or prosecute any alcohol or drug abuse patient.[facility] the event this information is protected by the Federal Confidentiality of Alcohol and Drug Abuse Patient Records regulations: The Federal rules restrict any use of the information to criminally investigate or prosecute any alcohol or drug abuse patient.[facility] the event this information is protected by the Federal Confidentiality of Alcohol and Drug Abuse Patient Records regulations: The Federal rules restrict any use of the information to criminally investigate or prosecute any alcohol or drug abuse patient.[facility] the event this information is protected by the Federal Confidentiality of Alcohol and Drug Abuse Patient Records regulations: The Federal rules restrict any use of the information to criminally investigate or prosecute any alcohol or drug abuse patient.[facility] the event this information is protected by the Federal Confidentiality of Alcohol and Drug Abuse Patient Records regulations: The Federal rules restrict any use of the information to criminally investigate or prosecute any alcohol or drug abuse patient.[facility] the event this information is protected by the Federal Confidentiality of Alcohol and Drug Abuse Patient Records regulations: The Federal rules restrict any use of the information to criminally investigate or prosecute any alcohol or drug abuse patient.[facility] the event this information is protected by the Federal Confidentiality of Alcohol and Drug Abuse Patient Records regulations: The Federal rules restrict any use of the information to criminally investigate or prosecute any alcohol or drug abuse patient.[facility] the event this information is protected by the Federal Confidentiality of Alcohol and Drug Abuse Patient Records regulations: The Federal rules restrict any use of the information to criminally investigate or prosecute any alcohol or drug abuse patient.[facility] the event this information is protected by the Federal Confidentiality of Alcohol and Drug Abuse Patient Records regulations: The Federal rules restrict any use of the information to criminally investigate or prosecute any alcohol or drug abuse patient.[facility] the event this information is protected by the Federal Confidentiality of Alcohol and Drug Abuse Patient Records regulations: The Federal rules restrict any use of the information to criminally investigate or prosecute any alcohol or drug abuse patient.[facility] the event this information is protected by the Federal Confidentiality of Alcohol and Drug Abuse Patient Records regulations: The Federal rules restrict any use of the information to criminally investigate or prosecute any alcohol or drug abuse patient.[facility] Reason for Visit (unrecogniz ed section and content) Specialty Diagnoses / Procedures Referred By Tatyana parham Referred To Contact [facility] Diagnoses Physical Procedures none Self [address] [facility] [address] [place] [address] Referral ID Status Reason Start Date Expiration Date V isits Requested Visits Authorized [id number] Closed Financial Clearance Required - Self Pay Patient Cleared - True Self-Pay required payment collected 09/12/2021 12/11/2021 1 1 Reason Comments Results Reason Comments Results Reason Comments Radiology Mammogram Reason Comments Radiology US Specialty Diagnoses / Procedures Referred By Tatyana parham Referred To Contact [facility] Diagnoses Abnormal mammogram Procedures US BREAST LTD LT US BREAST UNI REAL TIME WITH IMAGE LIMITED Brandee Stone MD [address] [place] [address] [facility] [address] [place] [address] Referral ID Status Reason Start Date Expiration Date V isits Requested Visits Authorized [id number] Closed Auto-Generate d Referral 11/06/2021 12/06/2022 1 1 Specialty Diagnoses / Procedures Referred By Tatyana t Referred To Contact [facility] Diagnoses R92.8 (ICD-10-CM) - Abnormal mammogram Procedures [id number] - [facility] [place] [address] (CPT ) - DIAGNOSTIC MAMMOGRAPHY COMPUTER-AIDED DETCJ UNI Brandee Stone MD [address] [place] [address] [facility] [address] [place] [address] Referral ID Status Reason Start Date Expiration Date V isits Requested Visits Authorized [id number] Closed Financial Clearance Required - Self Pay Patient Cleared - True Self-Pay required payment collected 11/07/2021 02/05/2022 1 1 Specialty Diagnoses / Procedures Referred By Tatyana parham Referred To Contact Radiology / [facility] Diagnoses Z12.31 PENDING WITH PCP Procedures MAMMOGRAM SCREENING Self Radio Mammo [facility] [address] [place] [address] Referral ID Status Reason Start Date Expiration Date V isits Requested Visits Authorized [id number] Closed Financial Clearance Required - Self Pay Patient Cleared - True Self-Pay required payment collected 07/21/2022 10/19/2022 1 1 Care Teams (unrecognized sec tion and content) Retail Assistant Manager Relationship Specialty Start Date End Date Brandee Stone MD [address], [place] [address] PCP - General Internal Medicine 08/20/16 Pcp, No Internal Medicine 10/19/15 Jaimie Church MD [address] [place] [address] Physician Reproductive Endocrinology 02/04/16 Retail Assistant Manager Relationship Specialty Start Date End Date Brandee Stone MD [address], [place] [id number] PCP - General Internal Medicine 08/20/16 Pcp, No Internal Medicine 10/19/15 Jaimie Chruch MD [address] [place] [address] Physician Reproductive Endocrinology 02/04/16 Retail Assistant Manager Relationship Specialty Start Date End Date Brandee Stone MD [address] [place], [place] [id number] PCP - General Internal Medicine 08/20/16 Pcp, No Internal Medicine 10/19/15 Jaimie Church MD [address] [place] [address] Physician Reproductive Endocrinology 02/04/16 Retail Assistant Manager Relationship Specialty Start Date End Date Brandee Stone MD [address] [place] [address] PCP - General Internal Medicine 08/20/16 Pcp, No Internal Medicine 10/19/15 Jaimie Church MD [address] [facility] [address] Physician Reproductive Endocrinology 02/04/16 Retail Assistant Manager Relationship Specialty Start Date End Date Brandee Stone MD [address] [place] [address] PCP - General Internal Medicine 08/20/16 Pcp, No Internal Medicine 10/19/15 Jaimie Church MD [address] [place] [address] Physician Reproductive Endocrinology 02/04/16 Retail Assistant Manager Relationship Specialty Start Date End Date Brandee Stone MD [address] [place] [address] PCP - General Internal Medicine 08/20/16 Pcp, No Internal Medicine 10/19/15 Jaimie Church MD [address] [place] [address] Physician Reproductive Endocrinology 02/04/16 Retail Assistant Manager Relationship Specialty Start Date End Date Brandee Stone MD [address] [place] [address] PCP - General Internal Medicine 08/20/16 Pcp, No Internal Medicine 10/19/15 Jaimie Church MD [address] [facility] [address] Physician Reproductive Endocrinology 02/04/16 Retail Assistant Manager Relationship Specialty Start Date End Date Brandee Stone MD [address] [place], [place] [id number] PCP - General Internal Medicine 08/20/16 Pcp, Chrissy Internal Medicine 10/19/15 Jaimie Church MD [address] [facility] [place], [place] [id number] Physician Reproductive Endocrinology 02/04/16 Retail Assistant Manager Relationship Specialty Start Date End Date Brandee Stone MD [address] [place] [address] PCP - General Internal Medicine 08/20/16 Pcp, No Internal Medicine 10/19/15 Jaimie Church MD [address] [place], [place] [id number] Physician Reproductive Endocrinology 02/04/16 Retail Assistant Manager Relationship Specialty Start Date End Date Brandee Stone MD [address] [place] [address] PCP - General Internal Medicine 08/20/16 PcpChrissy, BROOMMAKING SUPERVISOR Internal Medicine 10/19/15 Jaimie Church MD [address] [place], [place] [id number] Physician Reproductive Endocrinology 02/04/16 INFORMATION SOURCE (unrecogn [...] BE BASED ON THE PRIMARY CLINICAL RECORDS. [employer] [facility]. provides no warranty or guarantee of the accuracy or completeness of information in this document.
== END | disposition home or self-care (01) ==
PROVIDERS: PCP Internal Medicine; Referring Provider Obstetrics & Gynecology; Visit Provider Obstetrics & Gynecology
DX: Z12.31 Encounter for screening mammogram for malignant neoplasm of breast (principal)
CPT/HCPCS: 77063; 77067

== ENCOUNTER → 2023-11-23 | Outpatient (CLI) | payer OTHER, SELFPAY ==
[2023-11-23 10:55] LABS: Follicle Stimulating Hormone 74.5 mIU/mL; Prolactin 8.8 ng/mL
[2023-11-26 13:07] LABS: Testosterone Free 0.4 pg/mL (0.0-4.2)
[2023-11-29 15:07] LABS: 17-Hydroxyprogesterone 86 ng/dL (.)
== END | disposition home or self-care (01) ==
LOC: PAVLAB 10:02
PROVIDERS: PCP Internal Medicine; Referring Provider Obstetrics & Gynecology; Visit Provider Obstetrics & Gynecology
DX: N91.4 Secondary oligomenorrhea (principal)
CPT/HCPCS: 36415; 82627; 82670; 83001; 83498; 84146; 84402; 82626